=== PATIENT | female | born 1960 | race Hispanic/Latino ===

== ENCOUNTER 2019-02-26 18:03 | Emergency (ER) | payer OTHER ==
[~2019-02-26] VITALS: Ht 167.6 cm; Wt 103.9 kg
[~2019-02-26 18:03] MED LIST: AMOXIL250 MG PO; DOXYCYCLINE HY100 MG PO; HUMULIN R100 UNIT/2 SQ; LISINOPRIL10 MG PO; METFORMIN HCL500 MG PO; NORVASC5 MG PO; NOVOLIN N100 UNIT/1 SQ
[2019-02-26 18:56] LABS: BASOPHILS # (AUTO) 0.1 (0.0-0.1); BASOPHILS % 1.1 % (0.0-1.0); EOSINOPHILS # (AUTO) 0.2 (0.0-0.4); HEMATOCRIT 28.1 % (34.2-44.1); HEMOGLOBIN 7.7 g/dL (12.0-16.0); LYMPHOCYTES # (AUTO) 2.2 (1.0-3.2); LYMPHOCYTES % 26.2 % (18.0-39.1); MEAN CORPUSCULAR HEMOGLOBIN 18.6 pg (28-32); MEAN CORPUSCULAR HGB CONC 27.4 g/dL (31-35); MEAN CORPUSCULAR VOLUME 67.9 fL (81-99); MONOCYTES # (AUTO) 0.5 (0.2-0.8); MONOCYTES % 6.4 % (4.4-11.3); NEUTROPHILS # (AUTO) 5.4 (2.1-6.9); NEUTROPHILS % 63.9 % (38.7-80.0); PLATELET COUNT 614 x10e3/uL (140-360); RED BLOOD COUNT 4.14 x10e6/uL (3.6-5.1); RED CELL DISTRIBUTION WIDTH 17.5 % (11.7-14.4)
[2019-02-26 19:15] LABS: ALANINE AMINOTRANSFERASE 12 IU/L (0-55); ALBUMIN 3.1 g/dL (3.5-5.0); ALBUMIN/GLOBULIN RATIO 0.9 (0.8-2.0); ALKALINE PHOSPHATASE 146 IU/L (40-150); ANION GAP 15.9 mmol/L (8-16); BLOOD UREA NITROGEN < 5 mg/dL (7-26); CALCIUM 8.9 mg/dL (8.4-10.2); CARBON DIOXIDE 22 mmol/L (22-29); CHLORIDE 101 mmol/L (98-107); CREATINE KINASE 53 IU/L (29-168); CREATININE, SERUM 0.74 mg/dL (0.57-1.11); EST GLOMERULAR FILTRATION RATE > 60 ML/MIN (60-); GLUCOSE 80 mg/dL (74-118); POTASSIUM 3.9 mmol/L (3.5-5.1); SODIUM 135 mmol/L (136-145)
[2019-02-26 19:18] LABS: BUN/CREATININE RATIO 7 (6-25)
--- NOTE | 2019-02-26 19:22 | NUR ---
ER MD NOTIFIED AND AWARE OF CRITICAL LAB VALUE: TROPONIN 1.3.
--- NOTE | 2019-02-26 19:43 | Diagnostic Imaging Report ---
EXAM: CHEST 2 VIEWS DATE: 02/26/2019 6:17 PM INDICATION: ^CP ^[id number] ^[id number] COMPARISON: No previous chest examinations are available for comparison on PACS. FINDINGS: Lines and tubes: None Mild enlargement of the cardiac silhouette. Central pulmonary vascular prominence with interstitial edema. Trace bilateral pleural effusions. No focal consolidation or pneumothorax. Upper abdomen unremarkable. No acute bony abnormality. IMPRESSION: Cardiomegaly with pulmonary vascular prominence, interstitial edema and trace pleural effusions. Signed by: Dr. Garry Pate M.D. on 02/26/2019 7:40 PM
[2019-02-26] MEDS ORDERED: HEPARIN 25,000 UNIT 900 UNIT in DEXTROSE 5% 250ML 250 ML IV SCH ×2 (19:45→22:00)
[2019-02-26] MEDS ORDERED: ASPIRIN 81 MG CHEW TAB PO ONE (19:45)
[2019-02-26] MEDS ORDERED: HEPARIN SOD (PORCINE) 5,000 UNIT/ML VIAL IV ONE ×2 (19:45→22:00)
[2019-02-26 21:32] LABS: INR 0.92; PROTHROMBIN TIME 12.9 seconds (11.9-14.5)
[2019-02-26 21:33] LABS: PARTIAL THROMBOPLASTIN TIME 34.6 seconds (23.8-35.5)
--- NOTE | 2019-02-26 22:36 | NUR ---
CALLED [facility] FOR TRANSPORTATION. ETA 30-45 MINUTES.
--- NOTE | 2019-02-26 23:10 | NUR ---
[facility] AT FACILITY AT THIS TIME FOR PT TRANSPORT.
[2019-02-26 23:27] VITALS: BP 140/78
--- OUTSIDE RECORDS SUMMARY | 2019-02-28 14:01 | XMS REPORT ---
Author Author [facility] Address Unknown Phone Unavailable Care Team Providers Care Personal Development Mentor Name Role Phone Zahra MONTANO Unavailable Unavailable SWEET, A LAIRD Unavailable Unavailable Problems This patient has no known problems. Allergies, Adverse Reactions, Alerts This patient has no known allergies or adverse reactions. Medications This patient has no known medications. Results Test Description Test Time Test Comments Text Results Atomic Results Result Comments POCT-GLUCOSE METER 2019-02-28 08:52:00 POC-GLUCOSE METER (JAMES) (test fztv=3007) 268 mg/dL 70-110 : TESTED AT [facility] [address] [facility], [address]: [employer] Supervisor/Vocational Psychologist [id number] for LEONARD LOWE TROPONIN [id number] 07:32:00* Test Item Value Reference Range Comments TROPONIN I (BEAKER) (test nxlf=805) 1.00 ng/mL 0.00-0.03 Troponin I (TnI) levels must be interpreted in the context of the presenting sym ptoms and the clinical findings. Elevated TnI levels indicate myocardial damage, but are not specific for ischemic heart disease. Elevated TnI levels are seen in patients with other cardiac conditions (including myocarditis and congestive h eart failure), and slight TnI elevations occur in patients with other conditions , including sepsis, renal failure, acidosis, acute neurological disease, and per sistent tachyarrhythmia.CBC (HEMOGRAM ONLY)2019-02-28 07:25:00* Test Item Value Reference Range Comments WHITE BLOOD CELL COUNT (BEAKER) (test kaew=409) 7.4 K/ L 3.5-10.5 RED BLOOD CELL COUNT (BEAKER) (test kdzo=475) 3.76 M/ L 3.93-5.22 HEMOGLOBIN (BEAKER) (test nscv=476) 7.4 GM/DL 11.2-15.7 HEMATOCRIT (BEAKER) (test ggdq=733) 25.6 % 34.1-44.9 MEAN CORPUSCULAR VOLUME (BEAKER) (test msna=773) 68.1 fL 79.4-94.8 MEAN CORPUSCULAR HEMOGLOBIN (BEAKER) (test hktf=281) 19.7 pg 25.6-32.2 MEAN CORPUSCULAR HEMOGLOBIN CONC (BEAKER) (test gycw=495) 28.9 GM/DL 32.2-35.5 RED CELL DISTRIBUTION WIDTH (BEAKER) (test nelf=728) 18.4 % 11.7-14.4 PLATELET COUNT (BEAKER) (test kwti=454) 500 K/CU MM 150-450 MEAN PLATELET VOLUME (BEAKER) (test emrk=639) 8.9 fL 9.4-12.3 NUCLEATED RED BLOOD CELLS (BEAKER) (test yhnd=751) 0 /100 WBC 0-0 BASIC METABOLIC [id number] 06:27:00* Test Item Value Reference Range Comments SODIUM (BEAKER) (test mbho=598) 133 meq/L 136-145 POTASSIUM (BEAKER) (test yybo=037) 4.1 meq/L 3.5-5.1 CHLORIDE (BEAKER) (test iqpl=941) 99 meq/L 98-107 CO2 (BEAKER) (test bqvd=625) 26 meq/L 22-29 BLOOD UREA NITROGEN (BEAKER) (test cnds=634) 10 mg/dL 7-21 CREATININE (BEAKER) (test smmf=043) 0.98 mg/dL 0.57-1.25 GLUCOSE RANDOM (BEAKER) (test tgkn=992) 253 mg/dL 70-105 CALCIUM (BEAKER) (test teth=288) 8.1 mg/dL 8.4-10.2 EGFR (BEAKER) (test qrco=9616) 58 mL/min/1.73 sq m ESTIMATED GFR IS NOT ACCURATE CREATININE CLEARANCE IN PREDICTING GLOMERULAR FILTRATION RATE. ESTIMATED GFR IS NOT APPLICABLE FOR DIALYSIS PATIENTS. [id number] 06:26:00* Test Item Value Reference Range Comments PARTIAL THROMBOPLASTIN TIME (BEAKER) (test mscr=786) 55.0 seconds 22.5-36.0 [id number] 23:55:00* Test Item Value Reference Range Comments PARTIAL THROMBOPLASTIN TIME (BEAKER) (test iadr=657) 51.1 seconds 22.5-36.0 POCT-GLUCOSE [id number] 21:05:00* Test Item Value Reference Range Comments POC-GLUCOSE METER (BEAKER) (test ozya=0197) 210 mg/dL 70-110 : TESTED AT [facility] [address] [facility], [address]: [employer] Supervisor/Vocational Psychologist [id number] for Maribel Waters POCT-GLUCOSE [id number] 18:11:00* Test Item Value Reference Range Comments POC-GLUCOSE METER (BEAKER) (test yfpf=6954) 147 mg/dL 70-110 : TESTED AT [address], [address]: [employer] Supervisor/Vocational Psychologist [id number] for ALEX MARTINO [id number] 17:04:00* Test Item Value Reference Range Comments PARTIAL THROMBOPLASTIN TIME (BEAKER) (test lhdl=283) 40.3 seconds 22.5-36.0 POCT-GLUCOSE [id number] 13:10:00* Test Item Value Reference Range Comments POC-GLUCOSE METER (BEAKER) (test zuas=6347) 148 mg/dL 70-110 : TESTED AT [address], [address]: [employer] Supervisor/Vocational Psychologist [id number] for ALEX MARTINO TROPONIN [id number] 13:09:00* Test Item Value Reference Range Comments TROPONIN I (BEAKER) (test evdv=232) 1.68 ng/mL 0.00-0.03 Troponin I (TnI) levels must be interpreted in the context of the presenting sym ptoms and the clinical findings. Elevated TnI levels indicate myocardial damage, but are not specific for ischemic heart disease. Elevated TnI levels are seen in patients with other cardiac conditions (including myocarditis and congestive h eart failure), and slight TnI elevations occur in patients with other conditions , including sepsis, renal failure, acidosis, acute neurological disease, and per sistent tachyarrhythmia.HEMOGLOBIN AND [id number] 12:23:00* Test Item Value Reference Range Comments HEMOGLOBIN (BEAKER) (test ubfl=164) 7.4 GM/DL 11.2-15.7 HEMATOCRIT (BEAKER) (test staj=140) 26.4 % 34.1-44.9 POCT-GLUCOSE [id number] 11:18:00* Test Item Value Reference Range Comments POC-GLUCOSE METER (DEMETRIOAKER) (test ljuc=1669) 139 mg/dL 70-110 : TESTED AT [facility] [address] [facility], [address]: [employer] Supervisor/Vocational Psychologist [id number] for Georgia Wang [id number] 09:53:00* Test Item Value Reference Range Comments PARTIAL THROMBOPLASTIN TIME (DEMETRIOAKER) (test mrug=344) 44.1 seconds 22.5-36.0 HEMOGLOBIN [id number] 09:21:00* Test Item Value Reference Range Comments HEMOGLOBIN A1C (BEAKER) (test nwfo=879) 10.8 % 4.3-6.1 RAD, CHEST, 1 VIEW, NON [id number] 07:56:00Reason for exam:->chfShould this be performed at the bedside?->YesFINAL REPORT INDICATION: chf COMPARISON: None TECHNIQUE: Single frontal view of the chest. FINDINGS: Lungs and pleura: Clear lungs. No effusion.Heart and mediastinum: Normal heart size. Unremarkable mediastinal contours.Osseous structures: No acute abnormality.Other: None. IMPRESSION: No acute intrathoracic abnormality. Signed: Robina Palacios Verified Date/Time: 02/27/2019 07:56:30 Reading Location: [facility] Radiology Reading Room ONIN [id number] 07:24:00* Test Item Value Reference Range Comments TROPONIN I (DEMETRIOAKER) (test fawm=919) 1.66 ng/mL 0.00-0.03 Troponin I (TnI) levels must be interpreted in the context of the presenting sym ptoms and the clinical findings. Elevated TnI levels indicate myocardial damage, but are not specific for ischemic heart disease. Elevated TnI levels are seen in patients with other cardiac conditions (including myocarditis and congestive h eart failure), and slight TnI elevations occur in patients with other conditions , including sepsis, renal failure, acidosis, acute neurological disease, and per sistent tachyarrhythmia.TSH/FREE T4 IF [id number] 04:19:00* Test Item Value Reference Range Comments THYROID STIMULATING HORMONE (BEAKER) (test llph=975) 2.04 uIU/mL 0.35-4.94 IRON, TIBC, % SAT. (WITHOUT FERRITIN)2019-02-27 04:09:00* Test Item Value Reference Range Comments IRON (BEAKER) (test sgdw=622) 13.0 ug/dL 40.0-160.0 TOTAL IRON BINDING CAPACITY (BEAKER) (test ixxo=325) 373 ug/dL 250-450 IRON % SATURATION (2) (BEAKER) (test zzht=4665) 3 % 20-55 B-TYPE NATRIURETIC FACTOR (BNP)2019-02-27 04:03:00* Test Item Value Reference Range Comments B-TYPE NATRIURETIC PEPTIDE (BEAKER) (test qzcv=235) 821 pg/mL 0-100 LIPID [id number] 04:02:00* Test Item Value Reference Range Comments TRIGLYCERIDES (BEAKER) (test qsus=042) 145 mg/dL CHOLESTEROL (BEAKER) (test ojmn=238) 121 mg/dL HDL CHOLESTEROL (BEAKER) (test tvct=248) 32 mg/dL LDL CHOLESTEROL CALCULATED (BEAKER) (test fiog=672) 60 mg/dL Triglyceride Reference Range: Low Risk <150 Borderline 150-199 High Risk 200-499 Very High Risk >=500Cholesterol Reference Range: Low Risk <200 Borderline 200-239 High Risk >240HDL Cholesterol Reference Range: Low Risk >=60 High Risk <40LDL Cholesterol Reference Range: Optimal <100 Near Optimal 100-129 Borderline 130-159 High 160-189 Very High >=190 CBC (HEMOGRAM ONLY)2019-02-27 03:57:00* Test Item Value Reference Range Comments WHITE BLOOD CELL COUNT (BEAKER) (test fkjl=609) 7.2 K/ L 3.5-10.5 RED BLOOD CELL COUNT (BEAKER) (test wdfu=754) 3.63 M/ L 3.93-5.22 HEMOGLOBIN (BEAKER) (test dnxm=447) 6.7 GM/DL 11.2-15.7 HEMATOCRIT (BEAKER) (test cmcx=461) 24.0 % 34.1-44.9 MEAN CORPUSCULAR VOLUME (BEAKER) (test jysl=237) 66.1 fL 79.4-94.8 MEAN CORPUSCULAR HEMOGLOBIN (BEAKER) (test ygbf=752) 18.5 pg 25.6-32.2 MEAN CORPUSCULAR HEMOGLOBIN CONC (BEAKER) (test lxwl=687) 27.9 GM/DL 32.2-35.5 RED CELL DISTRIBUTION WIDTH (BEAKER) (test vscr=630) 17.2 % 11.7-14.4 PLATELET COUNT (BEAKER) (test jmmz=292) 544 K/CU MM 150-450 MEAN PLATELET VOLUME (BEAKER) (test wudp=655) 8.9 fL 9.4-12.3 NUCLEATED RED BLOOD CELLS (BEAKER) (test ldyg=364) 0 /100 WBC 0-0 [id number] 03:45:00* Test Item Value Reference Range Comments PARTIAL THROMBOPLASTIN TIME (BEAKER) (test srwp=301) 51.8 seconds 22.5-36.0 6 hours after starting heparin infusion and as indicated per sliding scaleAPTT 2019-02-27 03:44:00* Test Item Value Reference Range Comments PARTIAL THROMBOPLASTIN TIME (BEAKER) (test gcse=560) 69.5 seconds 22.5-36.0 Prior to initiating heparinCHEST 2 [id number] 19:39:00 [place] [address] Patient Name: JOANNA BREWER MR #: [id number] : 1960 Age/Sex: 58/F Req #: [id number] Adm Physician: Ordered by: VETO KEMP MD Report #: [id number] Location: ER Room/Bed: Procedure: 70 DX/CHEST 2 VIEWS Exam Date: 02/26/19 Exam Time: 1 845 REPORT STATUS: Signed EXAM: CHEST 2 VIEWS DATE: 02/26/2019 6:17 PM INDICATION: CP [id number] COMPARISON: No previous chest examinations are available for comparison on PACS. FINDINGS: Lines and tubes: None Mild e nlargement of the cardiac silhouette. Central pulmonary vascular prominence with interstitial edema. Trace bilateral pleural effusions. No focal consolid ation or pneumothorax. Upper abdomen unremarkable. No acute bony abnormalit y. IMPRESSION: Cardiomegaly with pulmonary vascular prominence, interstit ial edema and trace pleural effusions. Signed by: Dr. Ever Sanchez M.D. on 02/26/2019 7:40 PM Dictated By: EVER SANCHEZ MD Electronically Sign ed By: EVER SANCHEZ MD on 02/26/191939 Transcribed By: MAIK on 02/26/19 40 COPY TO: VETO KEMP MD
== END 2019-02-26 23:45 | disposition other institution (70) ==
LOC: ER 18:03
DX: R07.9 Chest pain, unspecified (principal); I21.4 Non-ST elevation (NSTEMI) myocardial infarction; I10 Essential (primary) hypertension; E11.9 Type 2 diabetes mellitus without complications; E66.9 Obesity, unspecified
CPT/HCPCS: 36415; 71046; 80053; 82550; 82553; 83880; 84484; 85025; 85610; 85730; 93005; 96365; 99284; J1644

== ENCOUNTER 2019-05-16 04:44 | Emergency (ER) | payer OTHER ==
[~2019-05-16] VITALS: Ht 167.6 cm; Wt 94.8 kg
[2019-05-16] MEDS ORDERED: DEXTROSE 5%/0.45% SOD CHL 1,000 ML IV ONE (05:00)
[2019-05-16 05:07] LABS: BASOPHILS # (AUTO) 0.1 (0.0-0.1); BASOPHILS % 0.8 % (0.0-1.0); EOSINOPHILS # (AUTO) 0.3 (0.0-0.4); EOSINOPHILS % 3.1 % (0.0-6.0); HEMATOCRIT 35.8 % (34.2-44.1); HEMOGLOBIN 10.7 g/dL (12.0-16.0); LYMPHOCYTES # (AUTO) 1.9 (1.0-3.2); LYMPHOCYTES % 20.9 % (18.0-39.1); MEAN CORPUSCULAR HEMOGLOBIN 23.3 pg (28-32); MEAN CORPUSCULAR HGB CONC 29.9 g/dL (31-35); MEAN CORPUSCULAR VOLUME 77.8 fL (81-99); MONOCYTES # (AUTO) 0.6 (0.2-0.8); MONOCYTES % 6.6 % (4.4-11.3); NEUTROPHILS # (AUTO) 6.2 (2.1-6.9); NEUTROPHILS % 68.4 % (38.7-80.0); PLATELET COUNT 362 x10e3/uL (140-360); RED CELL DISTRIBUTION WIDTH 17.1 % (11.7-14.4)
[2019-05-16 05:22] LABS: ANION GAP 10.5 mmol/L (8-16); BLOOD UREA NITROGEN 5 mg/dL (7-26); BUN/CREATININE RATIO 6 (6-25); CALCIUM 9.3 mg/dL (8.4-10.2); CARBON DIOXIDE 28 mmol/L (22-29); CHLORIDE 103 mmol/L (98-107); CREATININE, SERUM 0.78 mg/dL (0.57-1.11); EST GLOMERULAR FILTRATION RATE > 60 ML/MIN (60-); GLUCOSE 115 mg/dL (74-118); POTASSIUM 3.5 mmol/L (3.5-5.1); SODIUM 138 mmol/L (136-145)
[2019-05-16 05:44] LABS: CREATINE KINASE MB 1.8 ng/mL (0-5.0)
[2019-05-16 05:55] LABS: ALBUMIN 3.2 g/dL (3.5-5.0)
--- NOTE | 2019-05-16 06:06 | NUR ---
Bedside glucose 324, stopped IVF at this time.
[2019-05-16 06:07] LABS: BILIRUBIN,DIRECT 0.3 mg/dL (0.0-0.5)
--- NOTE | 2019-05-16 07:01 | Diagnostic Imaging Report ---
EXAMINATION: CHEST SINGLE (PORTABLE) INDICATION: Hypoglycemia COMPARISON: Chest x-ray 02/26/2019 FINDINGS: TUBES and LINES: None. LUNGS: Normal lung volumes. Lungs are clear. No consolidations. PLEURA: No pleural effusion or pneumothorax. HEART AND MEDIASTINUM: The cardiomediastinal silhouette is unremarkable. BONES AND SOFT TISSUES: No acute osseous lesion. Soft tissues are unremarkable. UPPER ABDOMEN: No free air under the diaphragm. IMPRESSION: No acute thoracic radiographic abnormality. Signed by: Wes Taylor DO on 05/16/2019 6:58 AM
== END 2019-05-16 07:46 | disposition home or self-care (01) ==
LOC: ER 04:44
DX: E11.649 Type 2 diabetes mellitus with hypoglycemia without coma (principal); I10 Essential (primary) hypertension; E66.9 Obesity, unspecified
CPT/HCPCS: 36415; 71045; 80048; 80076; 82550; 82553; 82948; 84484; 85025; 93005; 99284